=== PATIENT | male | born 1960 | race Caucasian/White ===

== ENCOUNTER 2017-05-05 14:08 | Outpatient (CLI) | payer BC | END 2017-05-05 14:09 | disposition critical access hospital (66) | LOC: EMS 14:08 | PROVIDERS: ATTEND Surgery | DX: R55 Syncope and collapse (principal) | CPT/HCPCS: A0425; A0429 ==

== ENCOUNTER 2017-05-05 14:11 | Emergency (ER) | payer BC ==
--- NOTE | 2017-05-05 14:20 | ED Physician Documentation ---
History of Present Illness - Stated complaint Stated Complaint: DIZZY - Chief complaint Chief Complaint: General - History obtained from History obtained from: Patient, Family, EMS - History of Present Illness Timing: Today Pain level max: 0 Pain level now: 0 Improved by: nothing Worsened by: nothing - Additonal information Additional information: Patient is a 57-year-old gentleman who presents to the emergency department after he was waiting for his food to arrive at [facility] today, when he fell lightheaded, nauseated and sweaty. This lasted approximately 5 minutes. EMS arrived and the patient had a normal EKG at that time. Patient was also hypotensive, systolic around 90-100, systolic has now improved back to his normal baseline and he is currently asymptomatic. Patient denies any chest pain , dyspnea, wheezing. No palpitations. No headache. Has never had these symptoms before. No changes in his medications. Did not pass out Review of Systems Ten Systems: 10 systems reviewed and negative Constitutional: denies: Fever, Chills Ears: denies: Ear pain Nose: denies: Rhinorrhea / runny nose, Congestion Throat: denies: Sore throat Cardiac: denies: Chest pain / pressure Respiratory: denies: Cough, Wheezing GI: denies: Abdominal Pain, Nausea, Vomiting, Diarrhea Skin: denies: Rash Musculoskeletal: denies: Neck pain, Back pain Neurologic: denies: Focal weakness, Numbness, Headache PD PAST MEDICAL HISTORY - Past Medical History Past Medical History: Yes Cardiovascular: Hypertension - Past Surgical History Past Surgical History: No - Present Medications Home Medications: Ambulatory Orders Medication Instructions Recorded Confirmed Lisinopril 10 mg PO DAILY 05/05/17 05/05/17 No Known Home Medications [No 05/05/17 05/05/17 Known Home Medications] - Allergies Allergies/Adverse Reactions: Allergies Allergy/AdvReac Type Severity Reaction Status Date / Time No Known Drug Allergies Allergy Verified 05/05/17 14:16 - Living Situation Living Situation: reports: With family Living Arrangement: reports: At home - Social History Does the pt smoke?: No Does the pt drink ETOH?: Yes ETOH Use: Wine Does the pt have substance abuse?: No PD ED PE NORMAL - Vitals Vital signs reviewed: Yes - General General: Alert and oriented X 3, No acute distress, Well developed/nourished - HEENT HEENT: PERRL, Moist mucous membranes - Neck Neck: Supple, no meningeal sign, No JVD, No bruit - Cardiac Cardiac: RRR, No murmur, Strong equal pulses - Respiratory Respiratory: No respiratory distress, Clear bilaterally - Abdomen Abdomen: Soft, Non tender, Non distended - Back Back: No spinal TTP - Derm Derm: Warm and dry, No rash - Extremities Extremities: No edema, No calf tenderness / cord - Neuro Neuro: Alert and oriented X 3, 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, No motor deficit, No sensory deficit, Normal speech - Psych Psych: Normal mood, Normal affect Results - Vitals Vitals: Vital Signs - 24 hr 05/05/17 05/05/17 05/05/17 14:14 15:04 16:36 Temperature 36.8 C Heart Rate 73 74 76 Respiratory 14 21 16 Rate Blood Pressure 114/89 H 114/77 129/82 H O2 Saturation 100 97 99 Oxygen O2 Source Room air - EKG (time done) 1414 Rate: Rate (enter#) (75) Rhythm: NSR [place]: Normal Intervals: Normal NC QRS: Normal Ischemia: Normal ST segments - Labs Labs: Laboratory Tests 05/05/17 05/05/17 05/05/17 14:37 14:37 14:37 WBC 7.2 RBC 5.34 Hgb 15.1 Hct 44.6 MCV 83.4 MCH 28.3 MCHC 34.0 RDW 14.0 Plt Count 153 MPV 8.8 Neut # 6.2 Lymph # 0.[address] [place] # 0.3 Eos # 0.1 Baso # 0.0 Absolute Nucleated RBC 0.00 Nucleated RBCs 0.0 Sodium 140 Potassium 4.2 Chloride 104 Carbon Dioxide 28 Anion Gap 8.0 BUN 22 H Creatinine 1.0 Estimated GFR (MDRD) 77 L Glucose 108 H Calcium 9.3 Total Bilirubin 0.8 AST 25 ALT 31 Alkaline Phosphatase 56 Troponin I < 0.04 Total Protein 7.3 Albumin 4.6 Globulin 2.7 Albumin/Globulin Ratio 1.7 Lipase 28 05/05/17 16:03 WBC RBC Hgb Hct MCV MCH MCHC RDW Plt Count MPV Neut # Lymph # [place] # Eos # Baso # Absolute Nucleated RBC Nucleated RBCs Sodium Potassium Chloride Carbon Dioxide Anion Gap BUN Creatinine Estimated GFR (MDRD) Glucose Calcium Total Bilirubin AST ALT Alkaline Phosphatase Troponin I < 0.04 Total Protein Albumin Globulin Albumin/Globulin Ratio Lipase - Rads (name of study) cxr Radiology: Prelim report reviewed, EMP read contemporaneously, See rad report ( normal) PD MEDICAL DECISION MAKING - ED course Complexity details: reviewed results, re-evaluated patient, considered differential (No acute coronary syndrome, no HI, no PE, no evidence of cardiac arrhythmia), d/w patient, d/w family ED course: Patient is a 57-year-old gentleman who presents to the emergency department after a near syncopal event today. Currently asymptomatic. Did receive IV fluids. He was observed on telemetry for several hours with no arrhythmias noted. We did discuss observation in the hospital for further telemetry monitoring, patient and declined this. I think this is reasonable and he will follow-up closely with his PCP for further evaluation of the event today. Negative cardiac enzymes 2. Patient and family counseled regarding signs and symptoms for which I believe and urgent re-evaluation would be necessary. Patient with good understanding of and agreement to plan and is comfortable going home at this time This document was made in part using voice recognition software. While efforts are made to proofread this document, sound alike and grammatical errors may occur. Departure - Departure Disposition: 01 Home, Self Care Clinical Impression: Postural dizziness with near syncope Condition: Good Instructions: ED Near Syncope Vasovagal Follow-Up: your,doctor in 1 week [Other] Comments: Return if you worsen. The cause of your symptoms is unclear today, but appeared to be related to a drop in your blood pressure. You should follow up with your doctor closely for a holter monitor to evaluate for possible cardiac arrhythmias (abnormal heart beat). Discharge Date/Time: 05/05/17 16:38
[2017-05-05] MEDS ORDERED: SODIUM CHLORIDE 0.9% 1,000 ML IV ONE (14:52)
[2017-05-05 14:56] LABS: ALBUMIN/GLOBULIN RATIO 1.7 (1.0-2.2); BILIRUBIN,TOTAL 0.8 mg/dL (0.2-1.0); CALCIUM 9.3 mg/dL (8.5-10.3); POTASSIUM 4.2 mmol/L (3.5-5.0); TOTAL PROTEIN 7.3 g/dL (6.7-8.2)
--- NOTE | 2017-05-05 14:58 | XRAY Preliminary Report ---
Exam: XR Chest 1 View IMPRESSION: Negative chest [facility]IA SITE ID: [id number]
--- NOTE | 2017-05-05 15:01 | XRAY Report ---
EXAM: CHEST RADIOGRAPHY EXAM DATE: 05/05/2017 02:42 PM. CLINICAL HISTORY: Near syncope. COMPARISON: None. TECHNIQUE: 1 view. FINDINGS: Lungs/Pleura: No focal opacities evident. No pleural effusion. No pneumothorax. Mediastinum: Within exam limitations, cardiomediastinal contour is normal. Other: None. IMPRESSION: Negative chest RADIA Referring Provider Line: [phone] SITE ID: [id number]
[2017-05-05 15:03] LABS: BASOPHILS % (AUTO) 0.2 %; EOSINOPHILS # (AUTO) 0.1 10^3/uL (0.0-0.7); EOSINOPHILS % (AUTO) 0.8 %; HCT - HEMATOCRIT 44.6 % (42.0-52.0); HGB - HEMOGLOBIN 15.1 g/dL (14.0-18.0); LYMPHOCYTES # (AUTO) 0.6 10^3/uL (1.5-3.5); LYMPHOCYTES % (AUTO) 8.3 %; MEAN CORPUSCULAR HEMOGLOBIN 28.3 pg (27.0-31.0); MEAN CORPUSCULAR VOLUME 83.4 fL (80.0-94.0); MEAN PLATELET VOLUME 8.8 fL (7.4-11.4); MONOCYTES # (AUTO) 0.3 10^3/uL (0.0-1.0); MONOCYTES % (AUTO) 4.8 %; NEUTROPHILS # (AUTO) 6.2 10^3/uL (1.5-6.6); NEUTROPHILS % (AUTO) 85.9 %; RED BLOOD COUNT 5.34 10^6/uL (4.70-6.10); UNCORRECTED WHITE BLOOD COUNT 7.2 x10^3/uL; WHITE BLOOD COUNT 7.2 x10^3/uL (4.8-10.8)
[2017-05-05 16:37] VITALS: BP 129/82
== END 2017-05-05 16:38 | disposition home or self-care (01) ==
LOC: ED 14:11
DX: R55 Syncope and collapse (principal); I10 Essential (primary) hypertension
CPT/HCPCS: 36415; 71010; 80053; 83690; 84484; 85025; 93005; 96360; 99283; 99284